=== PATIENT | male | born 1945 | race Asian ===

== ENCOUNTER → 2016-10-02 | Outpatient (CLI) | payer MEDICARE ==
[~2016-10-02] MED LIST: BLOOD PRESSURE MED
--- NOTE | ~2016-10-02 | US5 ---
[facility] A Service of [facility] RADIOLOGY TEXT RESULTS PATIENT: MILAD CHAKRABORTY LOCATION: US : 43 UNIT #: [id number] AGE: [address]: Valerie Miller MD SEX: M ORDER DR: [id number] [facility] [address] [place], [place] [address] [id number] O MR#: [id number] Acc #: [id number] NAME: MILAD CHAKRABORTY : 1945 SEX: M STUDY DATE/TIME: 10/02/2016 8:59 UNIT: [facility] ROOM: STUDY DESCRIPTION: US Abdominal Complete Attending Physician: Valerie Miller M.D. Referring Physician: Valerie Miller M.D. Ordering Physician: Valerie Miller M.D. Primary Care Physician: Valerie Miller M.D. MEDICAL IMAGING REPORT This report is preliminary unless electronic signature is present EXAM Abdominal ultrasound. HISTORY Abnormal elevated liver function tests. TECHNIQUE Grayscale, color Doppler, and spectral Doppler wave form analysis was performed through the abdomen. FINDINGS The pancreas cannot be seen, due to overlying bowel gas. The abdominal aorta measures within normal size limits. The inferior vena cava is patent with normal-appearing wave forms. Hypoechoic area identified within the left kidney, measuring about 1.0 x 0.6 cm. Potentially, this may reflect a benign renal cyst, but it does not definitively show increased through-transmission. I think on patient's prior CT from February 2013, there was a probable renal cyst within this area. That CT could be confirmatory. The spleen measures within normal size limits. The patient has 2 right renal cysts, with the larger measuring 3.5 x 3.5 x 4.2 cm. The gallbladder appears unremarkable with no stones or sludge seen. There is no gallbladder wall thickening or pericholecystic fluid. Main portal vein is patent with hepatopetal flow. There is no intra- or extrahepatic biliary dilatation. Liver measure within normal size limits. No focal hepatic lesions are seen. IMPRESSION 1. There is a hypoechoic lesion seen within the left kidney. It is not classic for a simple cyst. On a prior CT from 02/10/2013, there was a hypoattenuating lesion within the left kidney. Again, this could simply reflect a cyst. However, renal protocol CT or MRI would be confirmatory. [facility] A Service of [facility] RADIOLOGY TEXT RESULTS PATIENT: MILAD CHAKRABORTY LOCATION: [facility] : 44 UNIT #: [id number] AGE: [address]: Valerie Miller MD SEX: M ORDER DR: 2. Right renal cyst. 3. Radiography Technician did not obtain images of the liver adjacent to the kidney, which limits the evaluation for hepatic steatosis. I suspect it is probably present, and certainly, the patient did have steatosis on the prior exam from 02/10/2013. No obvious focal hepatic lesions are seen. Dictated by... Nancy Rowe M.D. THIS IS AN ELECTRONICALLY VERIFIED REPORT Nancy Rowe M.D. at 10/12/2016 12:24 PM ERIK/pierre TD: 10/10/2016 18:47 JOB #: [id number] MEDICAL IMAGING REPORT Page 1 of 1 COPY
== END | disposition home or self-care (01) ==
LOC: CGUS 08:00
DX: R74.8 Abnormal levels of other serum enzymes (principal)
CPT/HCPCS: 76700

== ENCOUNTER → 2016-10-23 | Outpatient (CLI) | payer MEDICARE ==
--- NOTE | ~2016-10-23 | CT3 ---
[facility] A Service of [facility] RADIOLOGY TEXT RESULTS PATIENT: MILAD CHAKRABORTY LOCATION: [facility] : 43 UNIT #: [id number] AGE: [address]: Valerie Miller MD SEX: M ORDER DR: [id number] [facility] [address] [place], [place] [address] [id number] O MR#: [id number] Acc #: [id number] NAME: MILAD CHAKRABORTY : 1945 SEX: M STUDY DATE/TIME: 10/23/2016 10:44 UNIT: [facility] ROOM: STUDY DESCRIPTION: CT Abd and Pelv WWo Cont Attending Physician: Valerie Miller M.D. Referring Physician: Valerie Miller M.D. Ordering Physician: Valerie Miller M.D. Primary Care Physician: No Primary Care Physician MEDICAL IMAGING REPORT This report is preliminary unless electronic signature is present EXAM CT abdomen without contrast, CT abdomen and pelvis with contrast. INDICATION Left renal mass noted on recent ultrasound. Observation for renal mass. PROCEDURE Unenhanced CT of the abdomen. Postcontrast CT of the abdomen and pelvis with multiphase acquisition through the kidneys. This CT exam was performed with one or more of the following radiation dose reduction techniques: automatic exposure control, adjustment of mA and/or kV according to patient size, and iterative reconstruction. COMPARISON Ultrasound from 10/02/2016. FINDINGS ABDOMEN WITHOUT CONTRAST: The included lung bases are clear. Hepatic steatosis. No radiodense renal calculus. ABDOMEN WITH CONTRAST: Kidneys enhance symmetrically. Right renal cysts largest is in the upper pole, measuring up to 4.2 cm. There are a few subcentimeter hypodensities in the left kidney. These probably represent small cysts but are too small to definitively characterize. No obvious enhancing renal mass. Hepatic steatosis with mildly cirrhotic morphology of the liver. The spleen is enlarged measuring 14.2 cm. No liver mass. Adrenal glands and pancreas unremarkable. Tiny stone in the gallbladder. No evidence for active inflammation. [facility] A Service of [facility] RADIOLOGY TEXT RESULTS PATIENT: MILAD CHAKRABORTY LOCATION: [facility] : 43 UNIT #: [id number] AGE: [address]: Valerie Miller MD SEX: M ORDER DR: The bowel loops are nondilated. Appendix is normal. PELVIS WITH CONTRAST: No pelvic mass or fluid. No aggressive appearing bone lesion. IMPRESSION 1. No acute findings. 2. Right renal cysts. 3. A few subcentimeter hypoenhancing lesions in the left kidney are too small to definitively characterize but probably represent small benign cysts. Appearance is very similar to 02/10/2013. No obvious enhancing renal mass. 4. Hepatic steatosis. Mildly cirrhotic morphology of the liver with splenomegaly. Dictated by... Brenden Jennings M.D. THIS IS AN ELECTRONICALLY VERIFIED REPORT Brenden Jennings M.D. at 10/27/2016 9:54 AM CHRISTOPHER/blu TD: 10/23/2016 13:49 JOB #: [id number] MEDICAL IMAGING REPORT Page 1 of 1 COPY
[2016-10-23 15:16] LABS: POC - CREATININE 1.03 mg/dL (0.64-1.27); POC - GFR >60.0 mL/min (>60)
== END | disposition home or self-care (01) ==
LOC: CCAT 09:03
PROVIDERS: Internal Medicine
DX: N28.89 Other specified disorders of kidney and ureter (principal); N28.1 Cyst of kidney, acquired; K76.0 Fatty (change of) liver, not elsewhere classified; R16.1 Splenomegaly, not elsewhere classified
CPT/HCPCS: 74178; 82565; Q9967

== ENCOUNTER → 2016-12-04 | Outpatient (CLI) | payer MEDICARE ==
[2016-12-04 14:44] LABS: HEMATOCRIT 40.4 % (38.0-50.0); HEMOGLOBIN 13.4 gm/dL (13.0-16.0); MEAN CELL VOLUME 91.9 FL (83-96); MEAN CORPUSCULAR HEMOGLOBIN 30.6 PG (28-34); MEAN CORPUSCULAR HGB CONC 33.3 g/dL (30-36); MEAN PLATELET VOLUME 8.8 FL (6.5-11.5); RED BLOOD COUNT 4.39 X10e (3.90-5.60); RED CELL DISTRIBUTION WIDTH 14.2 % (11.0-15.5)
[2016-12-04 15:20] LABS: ALBUMIN SERUM 4.5 g/dL (3.5-5.0); BUN/CREATININE RATIO 21.11; CALCIUM SERUM 9.4 mg/dL (8.4-10.2); CREATININE SERUM 0.9 mg/dL (0.6-1.4); POTASSIUM 4.4 mmol/L (3.5-5.1); PROTEIN TOTAL SERUM 7.6 g/dL (6.0-8.3)
[2016-12-07 22:24] LABS: ANA SCREEN Negative (Negative); HEPATITIS Be ANTIGEN Nonreactive (())
== END | disposition home or self-care (01) ==
LOC: CLAB 13:48
PROVIDERS: Nurse Practitioner
DX: R74.8 Abnormal levels of other serum enzymes (principal)
CPT/HCPCS: 36415; 80053; 82728; 83516; 85027; 86038; 86039; 87350